=== PATIENT | male | born 1990 | race Caucasian/White ===

== ENCOUNTER 2023-12-20 15:04 | Emergency (ER) | payer OTHER ==
[2023-12-20 16:01] LABS: Absolute Eosinophils 0.2 K/uL (0-0.5); Absolute Lymphocytes (CBC) 1.9 K/uL (0.7-4.9); Absolute Monocytes 0.5 K/uL (0.1-1.3); Basophils % 0.4 % (0-1.3); Eosinophils % 1.8 % (0-4.4); Hematocrit 47.9 % (39.6-49.0); Hemoglobin 16.8 g/dL (13.6-17.9); Lymphocytes % 16.3 % (15.3-44.8); MCH 33.2 pg (27.0-35.0); MCHC 35.2 g/dL (32.0-36.0); MCV 94.3 fL (80-100); MPV 6.6 fL (7.6-11.3); Monocytes % 4.6 % (3.3-12.3); Neutrophils % 76.9 % (41.7-73.7); Nucleated Red Blood Cells % 0.1 % (0-0); Platelets 192 thou/uL (152-406); RBC Red Blood Cell Count 5.08 M/uL (4.33-5.43); Red Cell Distribution Width 12.7 % (12.1-15.2)
[2023-12-20 16:10] LABS: Albumin 4.1 g/dL (3.4-5.0); Albumin/Globulin Ratio 0.9 (1.1-1.8); Anion Gap 13.2 mEq/L (5.0-15.0); Bilirubin Total 0.5 mg/dL (0.2-1.0); Globulin 4.4 g/dL (2.3-3.5); Protein, Total 8.5 g/dL (6.4-8.2)
[2023-12-20 16:13] LABS: Potassium 4.2 mEq/L (3.5-5.1)
--- NOTE | 2023-12-20 17:03 | RAD REPORT ---
EXAM DESCRIPTION: CT - CTFBWCON CLINICAL HISTORY: rule out abscess Pain and swelling COMPARISON: No comparisons TECHNIQUE: Axial 2 mm thick images of the face were obtained with sagittal and coronal reconstructio n images. All CT scans are performed using dose optimization technique as appropriate and may include automated exposure control or mA/KV adjustment according to patient size. FINDINGS: No acute facial bone fracture is seen.The mandible is intact. Small 6 mm odontogenic abscess seen along the right buccal cortex of the maxilla anteriorly likely re lated to a eroded right premolar. The globes and orbital contents are grossly unremarkable.Moderate polypoid mucosal thickening of the right maxillary antrum. IMPRESSION: 6 mm odontogenic abscess is seen along the buccal cortex of the maxilla anteriorly, like ly related to significantly eroded right premolar.
--- NOTE | 2023-12-20 17:18 | ER ---
Nurse's Notes [facility] Name: Lowell Lazaro Age: 33 yrs Sex: Male : 1990 Arrival Date: 12/20/2023 Time: 15:04 Bed 2 Private MD: Diagnosis: Facial cellulitis;Periapical abscess;Hyperglycemia Presentation: 12/19 15:15 Chief complaint: Patient states: right cheek started to swell yesterday. Went to urgent tm6 care today, they recommended I come here. The pain is dull and annoying. I have a tooth cracked on that side. Coronavirus screen: Vaccine status: Patient reports receiving the 2nd dose of the covid vaccine. Ebola Screen: Patient negative for fever greater than or equal to 101.5 degrees Fahrenheit, and additional compatible Ebola Virus Disease symptoms Patient denies exposure to infectious person. Patient denies travel to an Ebola-affected area in the 21 days before illness onset. No symptoms or risks identified at this time. Initial Sepsis Screen: Does the patient meet any 2 criteria? HR > 90 bpm. Does the patient have a suspected source of infection? No. Patient's initial sepsis screen is negative. Risk Assessment: Do you want to hurt yourself or someone else? Patient reports no desire to harm self or others. Onset of symptoms was December 19, 2023. 15:15 Method Of Arrival: Ambulatory tm6 15:15 Acuity: APPLE 3 tm6 Triage Assessment: 15:17 General: Appears in no apparent distress. uncomfortable, Behavior is calm, cooperative. tm6 Pain: Complains of pain in right cheek and right jaw Pain does not radiate. Pain currently is 4 out of 10 on a pain scale. Quality of pain is described as aching, dull, Pain began 1 day ago. EENT: Reports pain in right cheek and right jaw Pain is 4 out of 10 on a pain scale. since yesterday. Neuro: Level of Consciousness is awake, alert, obeys commands, Oriented to person, place, time, situation. Cardiovascular: Patient's skin is warm and dry. Respiratory: Airway is patent Respiratory effort is even, unlabored, Respiratory pattern is regular, symmetrical. GI: No signs and/or symptoms were reported involving the gastrointestinal system. Abdomen is round non-distended. : No signs and/or symptoms were reported regarding the genitourinary system. Derm: No signs and/or symptoms reported regarding the dermatologic system. Musculoskeletal: No signs and/or symptoms reported regarding the musculoskeletal system. Historical: - Allergies: 15:17 No Known Allergies; tm6 - PMHx: 15:17 None; tm6 - PSHx: 15:17 None; tm6 - Immunization history:: Client reports receiving the 2nd dose of the Covid vaccine. - Infectious Disease History:: Denies. - Social history:: Smoking status: Patient reports the use of cigarette tobacco products, denies chronic smoking, but will smoke occasionally, Patient uses alcohol, weekly. Screenin:32 [facility] ED Fall Risk Assessment (Adult) History of falling in the last 3 months, ph including since admission No falls in past 3 months (0 pts) Confusion or Disorientation No (0 pts) Intoxicated or Sedated No (0 pts) Impaired Gait No (0 pts) Mobility Assist Device Used No (0 pt) Altered Elimination No (0 pt) Score/Fall Risk Level 0 - 2 = Low Risk Oriented to surroundings, Maintained a safe environment, Hourly rounding (assess needs \T\ fall precautionary measures) done. Abuse screen: Denies threats or abuse. Denies injuries from another. Nutritional screening: No deficits noted. Tuberculosis screening: No symptoms or risk factors identified. Assessment: 15:45 General: Appears in no apparent distress. Behavior is cooperative, appropriate for age, ph anxious. Pain: Denies pain. Neuro: Level of Consciousness is awake, alert, obeys commands, Oriented to person, place, time, situation. Cardiovascular: Capillary refill < 3 seconds in bilateral fingers Patient's skin is warm and dry. Respiratory: Airway is patent Respiratory effort is even, unlabored. Musculoskeletal: Swelling present in right cheek and right jaw. 17:32 Reassessment: Patient appears in no apparent distress at this time. Patient and/or ph family updated on plan of care and expected duration. Pain level reassessed. Patient is alert, oriented x 3, equal unlabored respirations, skin warm/dry/pink. Vital Signs: 15:14 BP 151 / 118; Pulse 120; Resp 18; Temp 98.6(O); Pulse Ox 99% on R/A; Weight 113.4 kg; tm6 Height 5 ft. 9 in. ; Pain 4/10; 15:45 Pulse 108; ph 17:01 BP 143 / 89; Pulse 95; Resp 18; Pulse Ox 96% on R/A; ph 15:14 Body Mass Index 36.92 (113.40 kg, 175.26 cm) tm6 15:14 Pain Scale: Adult tm6 ED Course: 15:10 Patient arrived in ED. ra3 15:15 Peterson Chapman MD is Attending Physician. rt 15:17 Triage completed. tm6 15:17 Arm band placed on right wrist. tm6 15:28 Ashley Dueñas RN is Primary Nurse. ph 15:41 Initial lab(s) drawn, by me, sent to lab. Inserted saline lock: 22 gauge in right ph antecubital area, using aseptic technique. Blood collected. Flushed with 10 mL NS. 16:33 Patient has correct armband on for positive identification. Bed in low position. Call ph light in reach. Side rails up X 1. Pulse ox on. NIBP on. Door closed. Noise minimized. 16:53 CT Facial Bones W/ Con \T\ Mpr In Process Unspecified. EDMS 17:02 No provider procedures requiring assistance completed. ph 17:30 IV discontinued, intact, bleeding controlled, No redness/swelling at site. Pressure ph dressing applied. Administered Medications: 17:32 Drug: Amoxicillin-Clavulanate PO 875 mg PO once Route: PO; ph 17:33 Follow up: Response: No adverse reaction; Medication administered at discharge. ph Medication: 16:33 VIS not applicable for this client. ph Outcome: 17:18 Discharge ordered by MD. rt 17:33 Patient left the ED. ph 17:33 Discharged to home ambulatory, ph 17:33 Condition: good 17:33 Discharge instructions given to patient, Instructed on discharge instructions, follow up and referral plans. medication usage, Demonstrated understanding of instructions, follow-up care, medications, Prescriptions given X 2, Signatures: Dispatcher [employer] EDMS Ashley Dueñas RN RN Peterson Chapman MD MD rt Cori Romero RN RN [facility] She Tobar ra3
--- NOTE | 2023-12-20 17:18 | EDPHYS ---
Physician Documentation [facility] Name: Lowell Lazaro Age: 33 yrs Sex: Male : 1990 Arrival Date: 12/20/2023 Time: 15:04 Bed 2 Private MD: ED Physician Peterson Chapman HPI: 12/19 17:52 This 33 yrs old Male presents to ER via Ambulatory with complaints of Facial Swelling. rt 17:52 Patient presents to the ED with right-sided facial swelling since yesterday. Patient rt was seen at an urgent care, told to come for CT. Patient does report having a cracked tooth. Denies other acute complaints at this time, symptoms are moderate in severity, no other aggravating or elevating factors.. Historical: - Allergies: 15:17 No Known Allergies; tm6 - PMHx: 15:17 None; tm6 - PSHx: 15:17 None; tm6 - Immunization history:: Client reports receiving the 2nd dose of the Covid vaccine. - Infectious Disease History:: Denies. - Social history:: Smoking status: Patient reports the use of cigarette tobacco products, denies chronic smoking, but will smoke occasionally, Patient uses alcohol, weekly. ROS: 17:55 Constitutional: Negative for fever, chills, and weight loss, ENT: Facial swelling, rt dental pain Cardiovascular: Negative for chest pain, palpitations, and edema, Respiratory: Negative for shortness of breath, cough, wheezing, and pleuritic chest pain, Abdomen/GI: Negative for abdominal pain, nausea, vomiting, diarrhea, and constipation, MS/Extremity: Negative for injury and deformity, Skin: Negative for injury, rash, and discoloration, Neuro: Negative for headache, weakness, numbness, tingling, and seizure, Exam: 17:55 Constitutional: This is a well developed, well nourished patient who is awake, alert, rt and in no acute distress. Head/Face: Normocephalic, atraumatic. Chest/axilla: Normal chest wall appearance and motion. Nontender with no deformity. No lesions are appreciated. Cardiovascular: Regular rate and rhythm with a normal S1 and S2. No gallops, murmurs, or rubs. Normal PMI, no JVD. No pulse deficits. Respiratory: Lungs have equal breath sounds bilaterally, clear to auscultation and percussion. No rales, rhonchi or wheezes noted. No increased work of breathing, no retractions or nasal flaring. Abdomen/GI: Soft, non-tender, with normal bowel sounds. No distension or tympany. No guarding or rebound. No evidence of tenderness throughout. Skin: Warm, dry with normal turgor. Normal color with no rashes, no lesions, and no evidence of cellulitis. MS/ Extremity: Pulses equal, no cyanosis. Neurovascular intact. Full, normal range of motion. 17:55 ENT: Swelling to the right cheek, no drainable odontogenic abscess, fractured tooth noted the right upper molar. Vital Signs: 15:14 BP 151 / 118; Pulse 120; Resp 18; Temp 98.6(O); Pulse Ox 99% on R/A; Weight 113.4 kg; tm6 Height 5 ft. 9 in. ; Pain 4/10; 15:45 Pulse 108; ph 17:01 BP 143 / 89; Pulse 95; Resp 18; Pulse Ox 96% on R/A; ph 15:14 Body Mass Index 36.92 (113.40 kg, 175.26 cm) tm6 15:14 Pain Scale: Adult tm6 MDM: 15:22 Patient medically screened. rt 17:55 Differential Diagnosis Facial cellulitis, odontogenic abscess. Data reviewed: vital rt signs, nurses notes, lab test result(s), radiologic studies. Consideration of Admission/Observation Escalation of care including admission/observation considered. No drainable abscess, vital signs improving with no treatment in the ED. Only minor cellulitis, abscess, amenable to trial of oral outpatient management. Patient is notably hyperglycemic with no other complications. Patient informed of this, instructed follow-up with primary care for further management.. Independent interpretation of the following test(s) in the Emergency Department CT Scan: My interpretation is No abscess seen on interpretation of CT scan images. Counseling: I had a detailed discussion with the patient and/or guardian regarding the historical points, exam findings, and any diagnostic results supporting the discharge/admit diagnosis, lab results, radiology results, the need for outpatient follow up, to return to the emergency department if symptoms worsen or persist or if there are any questions or concerns that arise at home. 12/19 15:30 Order name: CBC with Diff; Complete Time: 16:22 rt 12/19 15:30 Order name: CMP; Complete Time: 16:22 rt 12/19 15:30 Order name: CT Facial Bones W/ Con \T\ Mpr; Complete Time: 17:05 rt Administered Medications: 17:32 Drug: Amoxicillin-Clavulanate PO 875 mg PO once Route: PO; ph 17:33 Follow up: Response: No adverse reaction; Medication administered at discharge. ph Disposition Summary: 12/20/23 17:18 Discharge Ordered Notes: Location: Home rt Problem: new rt Symptoms: are unchanged rt Condition: Stable rt Diagnosis - Facial cellulitis rt - Periapical abscess rt - Hyperglycemia rt Followup: rt - With: Private Physician - When: 2 - 3 days - Reason: Discharge Instructions: - Discharge Summary Sheet rt - Dental Abscess rt - Hyperglycemia rt Forms: - Work release form em1 - Medication Reconciliation Form rt - Antibiotic Education rt - Prescription Opioid Use rt - Patient Portal Instructions rt - Leadership Thank You Letter rt Prescriptions: - Augmentin 875-125 mg Oral Tablet - take 1 tablet ORAL route every 12 hours for 10 days; 20 tablet; Refills: 0, rt Product Selection Permitted - Metformin 500 mg Oral tablet - take 1 tablet ORAL route once daily for 7 days Then take 1 tablet with morning rt meals AND evening meals; 60 tablet; Refills: 0, Product Selection Permitted Signatures: Dispatcher [employer] Ashley Greenberg, RN RN Peterson Chapman MD MD rt Cori Romero RN RN tm6 Corrections: (The following items were deleted from the chart) 15:30 15:30 Facial Bones W/ Con \T\ [id number] ordered. EDMS EDMS
[2023-12-20] MEDS ORDERED: AMOX/K CLAV 875 MG TAB ONE (17:30)
[2023-12-20 17:54] VITALS: TEMP 98.6
[2023-12-20 17:58] VITALS: BP 143/89; O2SAT 96
== END 2023-12-20 17:33 | disposition home or self-care (01) ==
LOC: ER 15:04
DX: L03.211 Cellulitis of face (principal); K04.7 Periapical abscess without sinus; R73.9 Hyperglycemia, unspecified; F17.210 Nicotine dependence, cigarettes, uncomplicated
CPT/HCPCS: 85025; 36415; 80053; 70487; 76377; 99284; Q9967